=== PATIENT | male | born 1960 | race Caucasian/White ===

== ENCOUNTER 2025-03-23 15:56 | Observation (INO) | payer BC ==
[2025-03-23] MEDS ORDERED: Morphine 2 MG/ML SYRINGE IVPUSH PRN (16:05)
[2025-03-23] MEDS ORDERED: Ondansetron 4 MG Tab.DIS PO PRN (16:05)
[2025-03-23] MEDS ORDERED: Ondansetron 4 MG/2 ML SDV IV PRN (16:05)
[2025-03-23] MEDS: Iopamidol 755 Mg/ML 100 ML Bottle IVPUSH ONE (16:43)
[2025-03-23] MEDS: Sodium Chloride 0.9% 1,000 ML IV SCH (16:58)
[2025-03-23] MEDS: Pantoprazole 40 MG Vial IVPUSH ONE (17:03)
[2025-03-23] MEDS: Docusate Sodium 100 MG Cap PO PRN (18:38)
[2025-03-23] MEDS: Polyethylene Glycol 3350 Powder 17 GM Packet PO PRN (18:46)
[2025-03-23] MEDS: Metoprolol Succinate 25 MG Tab.ER PO SCH (19:15)
[2025-03-24] MEDS: Pantoprazole 40 MG Vial IVPUSH SCH (07:31)
[2025-03-24 07:55] LABS: ALBUMIN 3.2 g/dL (3.4-5.0); BILIRUBIN TOTAL 0.7 mg/dL (0.0-1.0); CALCIUM 8.9 mg/dL (8.4-10.1); EST CRCL DRUG DOSING (CG) 73.25 mL/min; MAGNESIUM 2.1 mg/dL (1.8-2.4); POTASSIUM,K 4.3 mEq/L (3.5-5.0); PROTEIN TOTAL,TP 6.4 g/dL (6.4-8.2)
[2025-03-24 07:59] LABS: BASOPHILS ABSOLUTE AUTO 0.08 10^3/uL (0.00-0.50); BASOPHILS PERCENT AUTO 0.9 % (0-1); EOSINOPHILS ABSOLUTE AUTO 0.53 10^3/uL (0.00-1.50); EOSINOPHILS PERCENT AUTO 6.1 % (0-6); HEMATOCRIT 36.1 % (42.0-52.0); HEMOGLOBIN 11.8 g/dL (14.0-18.0); IMMATURE GRAN ABSOLUTE AUTO 0.01 10^3/uL (0.00-0.49); IMMATURE GRAN PERCENT AUTO 0.1 % (0.0-4.9); LYMPHOCYTES ABSOLUTE AUTO 0.89 10^3/uL (0.60-5.00); LYMPHOCYTES PERCENT AUTO 10.2 % (24-44); MEAN CORPUSCULAR HEMOGLOBIN 29.7 pg (27.0-32.0); MEAN CORPUSCULAR HGB CONC 32.7 g/dL (32.0-36.0); MEAN CORPUSCULAR VOLUME 90.9 fL (83.0-97.0); MONOCYTES ABSOLUTE AUTO 0.66 10^3/uL (0.00-1.50); MONOCYTES PERCENT AUTO 7.5 % (0-10); NEUTROPHILS ABSOLUTE AUTO 6.59 x10^3/uL (1.80-8.00); NEUTROPHILS PERCENT AUTO 75.2 % (41-71); PLATELET COUNT,PLT 202 10^3/uL (150-400); RED BLOOD CELL COUNT 3.97 x10^6/uL (4.50-6.00); WHITE BLOOD CELL COUNT,WBC 8.8 10^3/uL (4.0-11.0)
[2025-03-24] MEDS: Lactated Ringers 1,000 ML IV ONE (08:23)
[2025-03-24] MEDS: Midazolam 1 MG/ML 2 ML SDV IVPUSH ONE (09:10)
[2025-03-24] MEDS: Meperidine 50 MG/ML Vial IVPUSH ONE (09:11)
== END 2025-03-24 12:26 | disposition home or self-care (01) ==
LOC: UNDOADMOB 15:56 → CC.MS 15:56
PROVIDERS: ADMIT Nurse Practitioner; ATTEND Nurse Practitioner
DX: R10.13 Epigastric pain (principal); R10.11 Right upper quadrant pain; E86.0 Dehydration; I47.29 Other ventricular tachycardia; K86.89 Other specified diseases of pancreas; K76.9 Liver disease, unspecified
CPT/HCPCS: 36415; 74177; 80053; 83605; 83735; 85025; 87081; 93005; 93010; 96361; 96374; 96375; 96376; 99223; 99238; A9270-GY; G0378; J2175; J2250; J2470; J7030; J7120; Q9967